=== PATIENT | female | born 1980 | race Caucasian/White ===

== ENCOUNTER 2016-10-19 05:40 | Emergency (ER) | payer MEDICAID, OTHER ==
[2016-10-19 06:00] VITALS: BP 134/78
[2016-10-19] MEDS ORDERED: Morphine 10 MG/ML Syringe IV ONE (06:08)
[2016-10-19] MEDS ORDERED: Ondansetron 4 MG/2 ML SDV IVPUSH ONE (06:08)
--- NOTE | 2016-10-19 06:21 | EDM.PDOC ---
ED HPI GI/ABDOMINAL - General Chief Complaint: Gastrointestinal Problem Stated Complaint: Right sided abdominal pain 2 days post gastric bypass surgery and liver biopsy Time Seen by Provider: 10/19/16 05:54 Source of Information: Reports: Patient History Limitations: Reports: No limitations - History of Present Illness INITIAL COMMENTS - FREE TEXT/NARRATIVE: The patient had gastric bypass surgery on October 17, 2016. She was discharged from the hospital yesterday morning per her request October 18, 2016. She started having severe abdominal pain last night around 20 to 2100 hours. Since that time she's vomited twice and has been having increased pressure and pain in the right side of her abdomen. She is urinating but is not passing gas nor has she had a bowel movement since her surgery. She states she is taking oral pain medications as prescribed but this has not been helping to relieve her pain. She denies fever, chills, shortness of breath, coughing, wheezing, chest pain, palpitations. Symptom Onset Date: 10/18/16 Symptom Onset Time: 22:00 Timing/Duration: Reports: Getting worse Location: other (right sided abdominal pain) Quality: Reports: ache, stabbing, throbbing Severity: severe Worsens with: Reports: vomiting, palpation, sitting up Associated Symptoms (-Female): Reports: denies other symptoms Treatments HEEL SEAM RUBBER: Reports: Other medication(s) Other Treatments HEEL SEAM RUBBER: oxycodone, hot and cold packs - Related Data Allergies/ADRs: Allergies Allergy/AdvReac Type Severity Reaction Status Date / Time No Known Allergies Allergy Verified 10/19/16 06:16 Home Meds: Home Meds oxyCODONE 5 mg PO Q4H PRN 10/19/16 [History] Past Medical History Genitourinary History: Reports: Renal calculus RADIATION MONITOR History: Reports: Polycystic Ovaries, Other OB/BYN History: D&C Psychiatric History: Reports: Depression Endocrine/Metabolic History: Reports: Diabetes, type II - Past Surgical History GI Surgical History: Reports: Bariatric procedure Female Surgical History: Reports: Lithotripsy/ESWL Social & Family History - Family History Family Medical History: Noncontributory - Tobacco Use Smoking Status *Q: Never Smoker - Caffeine Use Caffeine Use: Reports: Soda - Alcohol Use Days Per Week of Alcohol Use: 1 Number of Drinks Per Day: 2 Total Drinks Per Week: 2 - Recreational Drug Use Recreational Drug Use: No ED ROS GENERAL - Review of Systems Review Of Systems: See Below Constitutional: Reports: no symptoms HEENT: Reports: No symptoms Respiratory: Reports: No Symptoms Cardiovascular: Reports: No symptoms Endocrine: Reports: no symptoms GI/Abdominal: Reports: Abdominal pain, Decreased appetite, Nausea, Vomiting : Reports: no symptoms Musculoskeletal: Reports: no symptoms Skin: Reports: no symptoms Neurological: Reports: No Symptoms Psychiatric: Reports: Anxiety, Mood lability Immunologic: Reports: no symptoms ED EXAM, GI/ABD - Physical Exam Exam: See Below Exam Limited By: No limitations General Appearance: alert, WD/WN, moderate distress Head: atraumatic, normocephalic Neck: normal inspection, supple, non-tender, full range of motion Respiratory/Chest: no respiratory distress, lungs clear, normal breath sounds, no accessory muscle use, chest non-tender Cardiovascular: normal peripheral pulses, regular rate, rhythm, no edema, no gallop, no JVD, no murmur, no rub GI/Abdominal: normal bowel sounds, soft, tenderness (righ side of abdomen with light palpation), guarding (Trocar introduction sites are without redness or drainage. Skin adhesive is still intact) Back Exam: normal inspection, full range of motion, NT Extremities: normal inspection, normal range of motion, non-tender, normal capillary refill, no pedal edema Neurological: alert, oriented, normal cognition, normal gait Psychiatric: normal affect, anxious, tearful, other (Patient is on her cell phone continuously when we are in and out of the room. She is having heated discussions with whom ever she is speaking. She seems very agitated and angry. She shows no sign of being in any discomfort when she is on the phone.) Skin Exam: Warm, Dry, Intact, Normal color, No rash Lymphatic: no adenopathy Course - Vital Signs Last Recorded V/S: Last Vital Signs Temp 36.6 C 10/19/16 05:56 Pulse 80 10/19/16 05:56 Resp 16 10/19/16 05:56 BP 134/78 10/19/16 05:56 Pulse Ox 96 10/19/16 05:56 - Orders/Labs/Meds Labs: Laboratory Tests 10/19/16 10/19/16 Range/Units 06:13 06:13 WBC 9.0 (4.0-10.0) x10^3/uL RBC 3.71 L (4.00-5.50) x10^6/uL Hgb 11.8 L (12.0-16.0) g/dL Hct 34.2 (33.0-47.0) % MCV 92.2 (78.0-93.0) fL MCH 31.8 (26.0-32.0) pg MCHC 34.5 (32.0-36.0) g/dL RDW Coeff of Elizabeth 12.0 (10.0-15.0) % Plt Count 287 (130-400) x10^3/uL Neut % (Auto) 66.2 (50.0-80.0) % Lymph % (Auto) 27.2 (25.0-50.0) % [place] % (Auto) 5.7 (2.0-11.0) % Eos % (Auto) 0.7 (0.0-4.0) % Baso % (Auto) 0.2 (0.2-1.2) % Sodium 140 (136-145) mmol/L Potassium 3.5 (3.5-5.1) mmol/L Chloride 102 (98-107) mmol/L Carbon Dioxide 29 (21-32) mmol/L BUN 10 (7-18) mg/dL Creatinine 0.8 (0.55-1.02) mg/dL Est Cr Clr Drug Dosing 75.41 mL/min Estimated GFR (MDRD) > 60 Glucose 139 H (74-106) mg/dL Calcium 8.7 (8.5-10.1) mg/dL Corrected Calcium 9.50 (8.5-10.1) mg/dL Total Bilirubin 0.4 (0.2-1.0) mg/dL AST 21 (15-37) U/L ALT 43 (14-59) U/L Alkaline Phosphatase 57 (46-116) U/L Total Protein 6.8 (6.4-8.2) g/dL Albumin 3.0 L (3.4-5.0) g/dL Globulin 3.8 Albumin/Globulin Ratio 0.79 Meds: Medications Discontinued Medications Generic Name Dose Route Start Last Admin Trade Name Freq PRN Reason Stop Dose Admin Diazepam 5 mg 10/19/16 06:31 10/19/16 06:36 Valium IVPUSH 10/19/16 06:32 5 mg ONETIME ONE Administration Morphine Sulfate 10 mg 10/19/16 06:08 10/19/16 06:11 Morphine IV 10/19/16 06:09 10 mg ONETIME ONE Administration Ondansetron HCl 4 mg 10/19/16 06:08 10/19/16 06:14 Zofran IVPUSH 10/19/16 06:09 4 mg ONETIME ONE Administration - Re-Assessments/Exams Free Text/Narrative Re-Assessment/Exam: 10/19/16 06:49 Patient is sleeping peacefully in the room after administration of 10 mg morphine and 5 mg of Valium. She appears to be in no discomfort at this time. She has had no further incidence of vomiting. She did not vomit during her duration of stay in the emergency room. 10/19/16 06:49 Departure - Departure Time of Disposition: 07:00 Disposition: Home, Self-Care 01 Condition: good Clinical Impression: Post-op pain, Abdominal pain Instructions: Abdominal Pain, Adult, [id number] Forms: ED Department Discharge Additional Instructions: If you have further pain and abdominal discomfort I recommend you make an appointment within the next 2 days to followup with the surgeon who completed your gastric bypass surgery. Your lab results are stable. - Assessment/Plan Assessment:: Post-operative abdominal pain Plan: Follow up with your surgeon today.
[2016-10-19 06:43] LABS: CHLORIDE,CL 102 mmol/L (98-107); SODIUM,NA 140 mmol/L (136-145)
[2016-10-19] MEDS ORDERED: fentaNYL 100 MCG/2 ML SDV IVPUSH ONE (07:24)
== END 2016-10-19 07:50 | disposition home or self-care (01) ==
LOC: VM.ED 05:40
DX: G89.18 Other acute postprocedural pain (principal); R10.9 Unspecified abdominal pain; F32.9 Major depressive disorder, single episode, unspecified; E11.9 Type 2 diabetes mellitus without complications
CPT/HCPCS: 36415; 80053; 85025; 96374; 96375; 99283; J2270; J2405; J3010; J3360